=== PATIENT | male | born 1995 | race Caucasian/White ===

== ENCOUNTER 2017-05-27 15:00 | Emergency (ER) | payer OTHER ==
[~2017-05-27] VITALS: Ht 190.5 cm; Wt 69.3 kg
[2017-05-27 15:04] VITALS: BP 147/85
[2017-05-27 16:11] LABS: BASOPHILS # (AUTO) 0.03 x10^3/uL (0-0.3); BASOPHILS % (AUTO) 1 % (0-1); EOSINOPHILS # (AUTO) 0.06 x10^3/uL (0-0.8); EOSINOPHILS % (AUTO) 1 % (1-7); LYMPHOCYTES # (AUTO) 1.57 x10^3/uL (1-6.1); LYMPHOCYTES % (AUTO) 23 % (22-44); MD NO; MEAN CORPUSCULAR HGB CONC 33.7 g/dL (33.2-36.2); MEAN CORPUSCULAR VOLUME 88.9 fL (81-97); MEAN PLATELET VOLUME 8.8 fL (7.4-10.4); MONOCYTES # (AUTO) 0.81 x10^3/uL (0-1.4); MONOCYTES % (AUTO) 12 % (2-9); NEUTROPHILS # (AUTO) 4.35 x10^3/uL (1.8-8.0); NEUTROPHILS % (AUTO) 64 % (42-75); PLATELET COUNT 274 x10^3/uL (130-400); RED BLOOD COUNT 5.61 x10^6/uL (4.38-5.82); RED CELL DISTRIBUTION WIDTH 13.5 % (9.4-14.8)
[2017-05-27 16:18] LABS: ALANINE AMINOTRANSFERASE 32 U/L (12-78); ALBUMIN 4.3 g/dL (3.4-5.0); ANION GAP 6 mmol/L (5-15); CHLORIDE 107 mmol/L (98-107); CREATININE 1.02 mg/dL (0.7-1.3)
[2017-05-27 16:21] LABS: ALKALINE PHOSPHATASE 93 U/L (45-117); BILIRUBIN,TOTAL 0.7 mg/dL (0.2-1.0); TOTAL PROTEIN 8.5 g/dL (6.4-8.2)
[2017-05-27 17:45] LABS: MICROSCOPIC NOT IND
[2017-05-27 17:50] LABS: CULTURE INDICATED? NO
== END 2017-05-27 18:41 | disposition home or self-care (01) ==
LOC: ED 18:09
DX: R19.7 Diarrhea, unspecified (principal); R10.12 Left upper quadrant pain
CPT/HCPCS: 36415; 74021; 80053; 81003; 83690; 85025; 99285

== ENCOUNTER 2020-09-07 15:20 | Emergency (ER) | payer SELFPAY ==
[~2020-09-07] VITALS: Ht 188 cm; Wt 72.3 kg
--- NOTE | 2020-09-07 16:01 | NUR ---
PT C/O INTERMITTENT FEVERS FOR A COUPLE WEEKS. SORE THROAT STARTED A COUPLE DAYS AGO. WHITE PATCHES AND SWOLLEN LYMPH NODES STARTED TODAY. PT CONNECTED TO MONITORING. CALL LIGHT IN REACH. FAMILY AT BEDSIDE.
[2020-09-07] MEDS ORDERED: DEXAMETHASONE 4 MG TABLET PO ONE (17:30)
[2020-09-07 17:40] LABS: MEAN CORPUSCULAR HEMOGLOBIN 29.4 pg (27.5-34.5); MEAN CORPUSCULAR HGB CONC 33.1 g/dL (33.2-36.2); MEAN PLATELET VOLUME 8.2 fL (7.4-10.4); PLATELET COUNT 239 x10^3/uL (130-400); RED BLOOD COUNT 5.11 x10^6/uL (4.38-5.82); RED CELL DISTRIBUTION WIDTH 13.5 % (9.4-14.8)
[2020-09-07 17:54] LABS: ALBUMIN 3.4 g/dL (3.4-5.0); ANION GAP 5 mmol/L (5-15); CALCIUM 8.3 mg/dL (8.5-10.1); CHLORIDE 106 mmol/L (98-107); CREATININE 0.87 mg/dL (0.7-1.3)
[2020-09-07] MEDS ORDERED: DEXAMETHASONE 4 MG TABLET ONE (17:55)
--- NOTE | 2020-09-07 17:59 | NUR ---
DIGITAL CAMPAIGN MANAGER PER MAR.
[2020-09-07 18:22] LABS: BAND#(MANUAL) 0.44 x10^3/uL; BANDS%(MANUAL) 3 % (0-7); LYMPH#(MANUAL) 8.09 x10^3/uL (1-3.4); LYMPHS% (MANUAL) 55 % (22-44); MONOS#(MANUAL) 1.03 x10^3/uL (0.3-2.7); MONOS% (MANUAL) 7 % (2-9); REACTIVE LYMPHS # (MANUAL) 1.03 x10^3/uL (0-0); REACTIVE LYMPHS % (MANUAL) 7 % (0-0); SEG#(MANUAL) 4.12 x10^3/uL (1.8-6.8); SEGS% (MANUAL) 28 % (42-75)
[2020-09-07 18:23] LABS: <PLATELET ESTIMATE> ADEQUATE; <RBC MORPHOLOGY> NORMAL
[2020-09-07 18:24] LABS: <PLT MORPHOLOGY> NORMAL PLT MORPH
--- NOTE | 2020-09-07 19:04 | NUR ---
ALL RESULTS ARE BACK AT THIS TIME. CHART UP FOR RECHECK.
--- NOTE | 2020-09-07 19:50 | NUR ---
STREP WAS NOT TESTED WITH ORIGINAL SWAB. NEW SWAB COLLECTED AND SENT TO LAB.
[2020-09-07 20:33] VITALS: BP 118/75
== END 2020-09-07 20:36 | disposition home or self-care (01) ==
LOC: ED 15:50
DX: B27.09 Gammaherpesviral mononucleosis with other complications (principal); J02.8 Acute pharyngitis due to other specified organisms; R51.9 Headache, unspecified; R11.0 Nausea
CPT/HCPCS: 36415; 80048; 82040; 85025; 86308; 87081; 87880; 99283